=== PATIENT | female | born 1970 | race Two or more races ===

== ENCOUNTER 2019-03-13 10:13 | Emergency (ER) | payer MEDICAID, OTHER ==
[~2019-03-13] VITALS: Ht 165.1 cm; Wt 54.4 kg
[2019-03-13 10:21] VITALS: BP 159/95
== END 2019-03-13 11:36 | disposition home or self-care (01) ==
LOC: ER 10:13
DX: S90.812A Abrasion, left foot, initial encounter (principal); M79.672 Pain in left foot; G89.29 Other chronic pain; Z98.890 Other specified postprocedural states; Z88.0 Allergy status to penicillin; W19.XXXA Unspecified fall, initial encounter; Y93.89 Activity, other specified; Y92.89 Other specified places as the place of occurrence of the external cause; Y99.8 Other external cause status
CPT/HCPCS: 73630-TC

== ENCOUNTER 2019-04-29 14:17 | Emergency (ER) | payer OTHER ==
[~2019-04-29] VITALS: Ht 165.1 cm; Wt 54.4 kg
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
--- NOTE | 2019-04-29 15:23 | NUR ---
DR CLINE MADE AWARE OF X-RAY RESULT
[2019-04-29 15:52] VITALS: BP 128/70
--- NOTE | 2019-04-29 15:52 | NUR ---
Patient discharged to home in stable condition. Written prescription provided. Written and verbal after care instructions given. Patient verbalizes understanding of instruction.
== END 2019-04-29 15:53 | disposition home or self-care (01) ==
LOC: ER 14:22
DX: S22.32XA Fracture of one rib, left side, initial encounter for closed fracture (principal); F84.0 Autistic disorder; F17.200 Nicotine dependence, unspecified, uncomplicated; Z88.0 Allergy status to penicillin; Z98.890 Other specified postprocedural states; W18.39XA Other fall on same level, initial encounter; Y93.89 Activity, other specified; Y92.89 Other specified places as the place of occurrence of the external cause; Y99.8 Other external cause status
CPT/HCPCS: 71100-TC